=== PATIENT | male | born 1970 | race Caucasian/White ===

== ENCOUNTER → 2020-04-27 10:37 | Outpatient (CLI) | payer OTHER, SELFPAY ==
--- NOTE | 2020-04-27 | DI.RAD.S_ITS ---
PROCEDURE: [place] ARTHROGRAM SHOULDER LT INDICATIONS: Pain in left shoulder TECHNIQUE: The indications, alternatives, benefits, risks, and complications of the procedure were explained to the patient. Written informed consent was obtained and placed in the chart. The shoulder was examined fluoroscopically and a site for needle placement chosen for entry into the glenohumeral joint from an anterior approach. The skin was prepped and draped in a sterile fashion, and 1% lidocaine infiltrated from skin down to joint capsule. A spinal needle was inserted into the glenohumeral joint, and a small amount of iodinated contrast media injected to confirm intra-articular placement of the needle tip. This was followed by approximately 12 mL dilute solution of a gadolinium containing MR contrast agent. The needle was removed and a dressing was applied. The patient was given postprocedural instructions and sent to the MR suite for MR imaging. FINDINGS: A single fluoroscopic spot image demonstrates intra-articular location of injected iodinated contrast. IMPRESSION: Successful fluoroscopically guided administration of dilute Gadolinium solution into the shoulder joint for MR arthrogram. Dictated by: Steffany Dailey MD, PhD on 04/27/2020 at 13:07 Approved by: Steffany Dailey MD, PhD on 04/27/2020 at 13:07
--- NOTE | 2020-04-27 | DI.MRI.S_ITS ---
PROCEDURE: MR SHOULDER LT W CON INDICATIONS: Pain in left shoulder TECHNIQUE: After the administration of 12 mL of dilute intra-articular Gadolinium contrast, oblique coronal T1 and T2 spin echo with fat saturation, oblique sagittal T1 spin echo with and without fat saturation, oblique sagittal T2 fast spin echo with fat saturation, axial T1 spin echo with fat saturation through the shoulder. COMPARISON: [facility], , [place] ARTHROGRAM SHOULDER LT, 04/27/2020, 10:07. FINDINGS: Image quality: Diagnostic. Rotator cuff: No full-thickness or high-grade partial-thickness tear of the rotator cuff is identified. However, there is thickening and heterogeneity of the supraspinatus, infraspinatus, and subscapularis tendons with low to moderate grade partial-thickness tearing identified that is most pronounced along the footprint of the supraspinatus tendon. The teres minor tendon is intact and otherwise unremarkable. There is no significant atrophy of the rotator cuff muscles. Bones and bursae: No acute fracture, dislocation, or suspicious osseous lesion is identified involving the osseous structures of the left shoulder. There are mild degenerative changes of the glenohumeral joint and moderate degenerative changes of the acromioclavicular joint. There is adequate distention of the glenohumeral joint with the injected contrast. No loose intra-articular joint bodies are appreciated. None of the injected contrast extends into the subacromial subdeltoid bursa to suggest a nonvisualized full-thickness tear of the rotator cuff. However, small amount of fluid is contained within the bursa. Capsule and soft tissues: There is a small posterosuperior labral tear extending from the 12 o'clock position to the 2 o'clock position. Additional heterogeneity along the posterior labrum is also present. No large paracentral cysts are evident. The long head of the biceps tendon is normally positioned within the bicipital groove and is otherwise intact and unremarkable. The superior, middle, and inferior glenohumeral ligaments are intact. IMPRESSION: 1. Low to moderate grade partial-thickness tearing and tendinopathy of the rotator cuff is most pronounced involving the distal supraspinatus tendon. 2. Mild to moderate degenerative changes of the glenohumeral and acromioclavicular joints. 3. Small posterosuperior labral tear. Dictated by: Anoop Peterson M.D. on 04/27/2020 at 16:41 Approved by: Anoop Peterson M.D. on 04/27/2020 at 16:43
== END ==
DX: M25.512 Pain in left shoulder (principal); M75.112 Incomplete rotator cuff tear or rupture of left shoulder, not specified as traumatic; S43.492A Other sprain of left shoulder joint, initial encounter
CPT/HCPCS: 23350; 73040; 73222; 77002

== ENCOUNTER 2024-06-12 11:21 | Day surgery (SDC) | payer OTHER, SELFPAY ==
--- NOTE | 2024-06-12 | PATH_ITS ---
[place] Accession Number: [id number] No. of containers..02 Tissue . 01 Material submitted: . PART A: esophagus - ESOPHAGUS PART B: colon - SIGMOID POLYP . 01 Clinical history: . RULE OUT EOE . 01 Diagnosis: Part A: ESOPHAGUS: Squamous mucosa with increased intraepithelial eosinophils (focally up to 40 per high power field). See comment. . Specimen Comments: The features are consistent with eosinophilic esophagitis in the right clinical setting. . Part B: SIGMOID POLYP: Hyperplastic polyp. [facility] 06/14/2024 1613 Local . 01 Electronically signed: . Carlos Mccallum MD, Pathologist NPI- [id number] . 01 Gross description: . Part A: ESOPHAGUS: Received in formalin are 3 fragment(s) of ybarra, soft tissue measuring 0.3 x 0.2 x 0.1 cm to 0.4 x 0.2 x 0.1 cm submitted entirely in 1 cassette(s) . Part B: SIGMOID POLYP: Received in formalin is 1 fragment(s) of ybarra, soft tissue measuring 0.3 x 0.3 x 0.3 cm submitted entirely in 1 cassette(s) /TONYA 06/14/2024 1613 Local . 01 Microscopic: . Part A: ESOPHAGUS: An ABPAS stain was performed to evaluate for fungal organisms and is negative. The control stains appropriately. . 01 Pathologist provided ICD-10: K20.0, K63.5 . 01 CPT . 824545, 387365, 300261 Specimen Comment: A courtesy copy of this report has been sent to [phone] Performed at: [address] [address], [place], [place] [id number] MD Carlos Mccallum MD Phone: [phone]
[2024-06-12 11:40] VITALS: BP 144/96; PULSE 77; RESP 18; TEMP 36.1; O2SAT 97
[2024-06-12] MEDS: LACTATED RINGERS 1,000 ML 42 ML IV (11:47)
--- NOTE | 2024-06-12 11:56 | PM.HP.1 ---
History of Present Illness History of Present Illness Date Patient Seen: 06/12/24 Chief complaint: [facility] Medical History (Updated 06/12/24 @ 11:27 by Cristian Beebe RN) Dysphagia Hiatal hernia GERD (gastroesophageal reflux disease) Social History Smoking Status: Former smoker alcohol intake: current Meds Home Medications and Allergies Home Medications Medication Instructions Recorded Confirmed Type omeprazole 20 mg capsule,delayed 20 mg PO DAILY 06/12/24 06/12/24 History release sumatriptan succinate 25 mg tablet 25 mg PO PRN PRN Migraine Headache 06/12/24 06/12/24 History Allergies Allergy/AdvReac Type Severity Reaction Status Date / Time No Known Drug Allergies Allergy Verified 06/12/24 11:27 Exam Vital Signs (past 8 hours): - 06/12/24 11:40 Temperature 97.0 F L Pulse Rate 77 Respiratory Rate 18 Blood Pressure 144/96 H Pulse Oximetry 97 Oxygen Delivery Method Room Air Oxygen Delivery Method Room Air Narrative Exam Narrative: Oropharynx free of lesions Chest clear to auscultation percussion Cardiac exam reveals no S3 or murmur Assessment & Plan Assessment & Plan narrative: GE reflux and screening colonoscopy needed. EGD risks benefits and alternatives have been explained likewise colonoscopy. Time-Based Coding :: [TOTAL MINUTES] spent with patient and on the chart (including review of chart, obtaining history, exam, reviewing outside data, placing orders, documenting exam and treatment plan, and counseling patient) on [DATE].
--- NOTE | 2024-06-12 11:59 | PM.OP.EC ---
Operative Date/Time/Diagnoses Date of procedure: 06/12/24 Pre-op diagnosis: See indication and findings Procedure & Clinicians Study performed: EGD and colonoscopy Indications: Chronic GE reflux and need for colorectal cancer screening Surgeon: Cong Viveros Procedure Notes Procedure in detail: After informed consent was obtained the patient was placed in left lateral decubitus position. The video upper scope was placed into the oropharynx and with the patient's help swallowed into the esophagus. The esophagus stomach and duodenum were carefully examined. On withdrawal, retroflexed view the GE junction was performed. The scope was removed. The patient tolerated procedure well. The patient was then turned and the colonoscope substituted. This was passed into the rectum slowly advanced cecum. Preparation was good. On slow withdrawal mucosa was carefully examined. The scope was removed. The patient tolerated procedure well. Blood loss none Complications none Sedation mac Findings EGD 1. Concentric rings in the esophagus biopsies taken to rule out eosinophilic esophagus 2. Fairly wide open lower esophageal sphincter 3. 2-3 cm hiatal hernia 4. Normal distal stomach and duodenal bulb and sweep Colonoscopy 1. 5 mm polyp in the sigmoid colon biopsied x2 and removed completely 2. Scattered sigmoid diverticulosis 3. Otherwise negative colonoscopy to cecum Will be in touch regarding his polyp results which will have bearing on the frequency with which he gets colonoscopy. Will also be in touch regarding esophagus biopsies.
--- NOTE | 2024-06-12 12:10 | SUR.OPER ---
EGD SCOPE 047
[2024-06-12 12:34] VITALS: BP 108/76; PULSE 65; RESP 13; TEMP 36.2; O2SAT 97
[2024-06-12 12:39] VITALS: BP 90/64; PULSE 61; RESP 15; O2SAT 93
[2024-06-12 12:44] VITALS: BP 117/67; PULSE 68; RESP 14; O2SAT 96
[2024-06-12 12:46] VITALS: BP 124/81; PULSE 67; RESP 13; TEMP 36.2; O2SAT 94
== END 2024-06-12 13:02 | disposition home or self-care (01) ==
PROVIDERS: Referring Provider Internal Medicine Gastroenterology; Visit Provider Internal Medicine Gastroenterology
PROC: 0DJ08ZZ Inspection of Upper Intestinal Tract, Via Natural or Artificial Opening Endoscopic (ICD-10-PCS; CPT 43235; principal; 2024-06-12 12:30)
PROC: 0DJD8ZZ Inspection of Lower Intestinal Tract, Via Natural or Artificial Opening Endoscopic (ICD-10-PCS; CPT 45378; 2024-06-12 12:30)
DX: Z12.11 Encounter for screening for malignant neoplasm of colon (principal); K21.9 Gastro-esophageal reflux disease without esophagitis; K57.30 Diverticulosis of large intestine without perforation or abscess without bleeding; K44.9 Diaphragmatic hernia without obstruction or gangrene; K63.5 Polyp of colon
CPT/HCPCS: 45380; 43239; J2704